=== PATIENT | female | born 1970 | race Caucasian/White ===

== ENCOUNTER → 2016-10-12 | Outpatient (CLI) | payer BC ==
[~2016-10-12] MED LIST: ADVIL200 M2 PO; DICLOFENAC; HYDROCODON-ACE1 EAC7 PO; HYDROCODONE-APA1 T57 PO; KEFLEX500 MG PO; LEXAPRO PO; LORTAB 10-5001 EACH PO; NO MEDICATIONS; PERCOCET5/325 PO; TYLENOL #3 PO; ULTRAM PO; VOLTAREN75 MG PO; WELLBUTRIN PO
--- NOTE | ~2016-10-12 | MR151 ---
[facility] A Service of [facility] RADIOLOGY TEXT RESULTS PATIENT: KIT JOHN LOCATION: [facility] : 74 UNIT #: [id number] AGE: [address]: NADIA EMERSON MD SEX: F ORDER DR: [id number] [facility]. [place], [place] [address] [id number] O MR#: [id number] Acc #: [id number] NAME: KIT JOHN : 1970 SEX: F STUDY DATE/TIME: 10/12/2016 7:34 UNIT: [facility] ROOM: STUDY DESCRIPTION: MR Pelvis WWo Contrast Attending Physician: Nadia Emerson M.D. Referring Physician: Nadia Emerson M.D. Ordering Physician: Nadia Emerson M.D. Primary Care Physician: Nadia Emerson M.D. MRI CENTER REPORT This report is preliminary unless electronic signature is present. EXAM Pelvis, with and without contrast. INDICATIONS Perirectal abscess. Hemorrhoid. History of rectal bleeding. Intermittent bleeding for 6-8 months. TECHNIQUE Multiplanar MRI of the pelvis with and without contrast (29 ml MultiHance IV contrast. Exam was performed as a rectal protocol MRI. FINDINGS There is no focal wall thickening or mass identified in the rectum. No evidence of a perirectal fluid collection/abscess. No fistulous tracts. There are no pathologically enlarged pelvic lymph nodes. The bladder is unremarkable. The uterus and ovaries are within normal limits. There is some mild susceptibility artifact adjacent to the fallopian tube, suggesting prior tubal ligation. The pelvic vasculature is patent. IMPRESSION 1. Negative MRI of the rectum. 2. No evidence of a perirectal fluid collection/abscess, or fistulous tract. Dictated by... Raghu Norman M.D. THIS IS AN ELECTRONICALLY VERIFIED REPORT Raghu Norman M.D. at 10/13/2016 8:18 AM RPC/gz [facility] of [facility] RADIOLOGY TEXT RESULTS PATIENT: KIT JOHN [facility] UNIT #: [id number] AGE: [address]: NADIA EMERSON MD SEX: F ORDER DR: TD: 10/12/2016 16:38 JOB #: [id number] MRI CENTER REPORT COPY
[2016-10-12 07:21] LABS: POC - CREATININE 0.92 mg/dL (0.44-1.03); POC - GFR >60.0 mL/min (>60)
== END | disposition home or self-care (01) ==
LOC: CMRI 06:38
PROVIDERS: Family Medicine
DX: K64.9 Unspecified hemorrhoids (principal)
CPT/HCPCS: 72197; 82565; A9577